=== PATIENT | female | born 1945 | race Caucasian/White ===

== ENCOUNTER 2021-03-09 04:54 | Emergency (ER) | payer OTHER ==
[2021-03-09] MEDS ORDERED: Lorazepam 2 MG/ML VIAL ONE (05:31)
[2021-03-09] MEDS ORDERED: Ziprasidone 20 MG VIAL ONE (06:34)
== END 2021-03-09 07:18 | disposition home or self-care (01) ==
LOC: CSHERS 04:54
DX: H61.21 Impacted cerumen, right ear (principal); R44.0 Auditory hallucinations; E11.9 Type 2 diabetes mellitus without complications; M81.0 Age-related osteoporosis without current pathological fracture; I25.10 Atherosclerotic heart disease of native coronary artery without angina pectoris; M19.90 Unspecified osteoarthritis, unspecified site; Z86.73 Personal history of transient ischemic attack (TIA), and cerebral infarction without residual deficits
CPT/HCPCS: 69209; 96372; J2060; J3486